=== PATIENT | male | born 1990 | race Caucasian/White ===

== ENCOUNTER 2017-10-10 02:01 | Emergency (ER) | payer OTHER ==
--- NOTE | 2017-10-10 02:03 | EDPHY ---
H & P HPI/ROS: HPI CHIEF COMPLAINT: Acute anxiety HISTORY OF PRESENT ILLNESS: This patient is a very pleasant 26-year-old male significant past medical history depression anxiety, takes Wellbutrin and Lexapro. He presents emergency room tonight stating he feels very anxious. States he had 4 beers earlier became concerned and anxious after drinking 4 beers that it may interact with Lexapro and Wellbutrin. Denies any chest pain or shortness of breath. Denies headache neck pain muscle rigidity. Denies high fever. Main complaint is anxiety. He is requesting anxiety medication here in the emergency room. Past Medical History: Depression and anxiety. Past Surgical History: Denies recent surgery Social History: [employer] grad student, occasional alcohol use, denies illicit drugs or tobacco. Family History: Noncontributory ROS REVIEW OF SYSTEMS: A comprehensive 10 point review of systems is otherwise negative aside from elements mentioned in the history of present illness. Exam Constitutional appears well nontoxic, slightly anxious, triage nursing summary reviewed, vital signs reviewed, awake/alert. Eyes normal conjunctivae and sclera, EOMI, PERRLA. HENT normal inspection, atraumatic, moist mucus membranes, no epistaxis, neck supple/ no meningismus, no raccoon eyes. Respiratory clear to auscultation bilaterally, normal breath sounds, no respiratory distress, no wheezing. Cardiovascular rate normal, regular rhythm, no murmur, no edema, distal pulses normal. Gastrointestinal soft, non-tender, no rebound, no guarding, normal bowel sounds, no distension, no pulsatile mass. Genitourinary no CVA tenderness. Musculoskeletal no midline vertebral tenderness, full range of motion, no calf swelling, no tenderness of extremities, no meningismus, good pulses, neurovascularly intact. Skin pink, warm, & dry, no rash, skin atraumatic. Neurologic awake, alert and oriented x 3, AAOx3, moves all 4 extremities equally, motor intact, sensory intact, CN II-XII intact, normal cerebellar, normal vision, normal speech. Extremities are supple. No rigidity. Psychiatric anxious Heme/Lymph/Immune no lymphadenopathy. Differential Diagnosis: Includes but is not limited to in a particular order acute anxiety, panic attack. Medical Decision Making: Plan for this patient p.o. Ativan 1 mg, p.o. fluids and re-evaluate. Re-evaluation: 0314: I did re-evaluate this patient this time is resting comfortably feels much better after 1 mg p.o. Ativan. He is requesting discharge. P.o. challenge well. No further anxiety denies chest pain or shortness of breath. Return precautions have been given. Source: Patient - Medical/Surgical History Hx Asthma: No Hx Chronic Respiratory Disease: No Hx Diabetes: No Hx Cardiac Disease: No Hx Renal Disease: No Hx Cirrhosis: No Hx Alcoholism: No Hx HIV/AIDS: No Hx Splenectomy or Spleen Trauma: No Other PMH: TONSILectomy, anxiety, depression, eye surgery, oral surgery, C6-c7 surgery - Social History Smoking Status: Current some day smoker Constitutional: Initial Vital Signs Temperature (C) 37.0 C 10/10/17 02:03 Heart Rate 104 H 10/10/17 02:03 Respiratory Rate 18 10/10/17 02:03 O2 Sat (%) 99 10/10/17 02:03 O2 Delivery Mode Room Air Allergies/Adverse Reactions: No Known Allergies Allergy (Unverified 06/27/14 09:48) Home Medications: Medication Instructions Recorded Lexapro 08/09/16 Wellbutrin 150mg XL 10/10/17 Medical Decision Making - Data Points Medications Given: Discontinued Medications Lorazepam (Ativan) 1 mg PO ONCE ONE Stop: 10/10/17 02:19 Last Admin: 10/10/17 02:28 Dose: 1 mg Departure - Departure Disposition: Home, Routine, Self-Care Clinical Impression: Acute anxiety Condition: Good Instructions: Anxiety (ED) Additional Instructions: 1. Drink lots of fluids stay well-hydrated. 2. Return to the emergency room if you have worsening symptoms questions or concerns. Referrals: NONE *PRIMARY CARE P,. [Primary Care Provider] - As per Instructions
[2017-10-10 02:08] VITALS: TEMP 98.6; O2SAT 99
[2017-10-10] MEDS ORDERED: LORazepam 1 MG TAB PO ONE (02:18)
[2017-10-10 03:20] VITALS: BP 120/83; PULSE 82; RESP 17
== END 2017-10-10 03:20 | disposition home or self-care (01) ==
DX: F41.9 Anxiety disorder, unspecified (principal); F17.200 Nicotine dependence, unspecified, uncomplicated